=== PATIENT | male | born 1975 | race Caucasian/White ===

== ENCOUNTER 2022-02-01 13:57 | Emergency (ER) | payer BC, SELFPAY ==
[2022-02-01 14:07] VITALS: BP 111/65; PULSE 107; RESP 18; TEMP 36.9; O2SAT 98
--- NOTE | 2022-02-01 14:25 | ED.GENADUL_ITS ---
Discharge Plan Disposition Patient Disposition: HOME Condition: Stable Discharge Details Chief Complaint: AnimalBite Clinical Impression: Dog bite of left lower leg Primary Care Provider: Marleen,Local ED Provider: Willis Sutherland Home Meds and New Rx's Prescriptions: No Action No Known Home Meds Discharge Instructions Instructions: Animal Bite (ED) Additional Instructions: Your wound was cleaned and dressed. You have not provided information regarding the dog bite and therefore we must assume the dog has rabies, we have initiated the rabies vaccine and immunoglobulin as well as updated your tetanus status. I have filled out the form so that you may have the next 3 rabies vaccine as well. Please keep the area clean and dry, change dressing daily. [id number] Tylenol and/or Motrin as directed for discomfort. Rest, elevate, cool and/or warm compresses every 2 hours for 20 minutes. Please watch for new or worsening symptoms and return to the ER for any concerns. Lastly, please contact your primary care provider on Thursday to discuss your ER visit need for outpatient reevaluation Medical Decision Making This is a 47-year-old gentleman, otherwise healthy, presenting for a left lower leg dog bite approximately 2 hours ago. Patient declined to provide information regarding the dog bite and would like to move forward with rabies vaccine and immunoglobulin. Patient declines an x-ray. No clear indication to initiate antibiotic therapy. Dog bite was reported. Tetanus updated. Wound was thoroughly cleaned and dressed. Initiated rabies immunoglobulin and vaccine, form filled for the next 3 rabies injections Standard discharge and return precautions were provided. Patient understands, is agreeable to this plan, and has no additional questions or concerns upon discharge. This documentation was generated using [employer] system, please disregard any oddities of phrase or misspellings. Medical Records Medical records reviewed: Yes I reviewed the patient's medical records. HPI General Mode of arrival: ambulatory . Date/Time Provider Initiated Documentation: 02/01/22 14:10 . Limitations to Documentation: no limitations . Information obtained by: patient . History of Present Illness 47 year old M presents to the emergency department with the chief complaint of L lower leg dog bite, described as mild, with intensity rated at 3. Quality is described as aching, and is localized to the left and lower extremity. Patient reports no radiation. Patient started experiencing this hour(s) and it has been constant. No relieving factors improve symptom(s), No exacerbating factors reported . Patient notes no other symptoms.. Patient did receive the following treatments prior to arrival, none Related Data Home Medications Medication Instructions Recorded Confirmed Unknown [No Known Home Meds] 02/07/17 03/19/21 Allergies Allergy/AdvReac Type Severity Reaction Status Date / Time No Known Allergies Allergy Unverified 02/01/22 14:09 General Stated Complaint: AnimalBite MICHELLE: 3 Review of Systems Constitutional Constitutional: Denies fever(s) and Denies weakness Musculoskeletal Musculoskeletal: Denies arthralgias, Denies numbness, Denies stiffness and Denies tingling Integumentary/Breasts Skin/Breast: Denies erythema Neurologic Neurologic: Denies numbness, Denies tingling and Denies weakness PFSH All Active Problems (Updated 02/01/22 @ 14:59 by PANKAJ Hamilton) Dog bite of left lower leg (Acute) Social History Smoking risk assessment performed?: No Do you feel safe in your relationship?: Yes Exam Const General: cooperative, healthy appearing, comfortable and no acute distress Orientation: alert and awake HENNY Head: normal to inspection, normocephalic and atraumatic Eyes Conjunctivae: conjunctivae normal Neck Neck: normal visual inspection, trachea midline and supple Resp Effort & Inspection: normal respiratory effort and able to speak in complete sentences Cardio Rate: regular rate Rhythm: regular rhythm Skin General skin exam: no rashes or lesions noted Neuro General: patient alert, patient awake, moves all extremities and no focal motor deficits Cognition: normal cognition Speech: speech normal Gait: normal gait Motor: muscle tone normal throughout Sensory Exam: no sensory deficits noted Extrem General: full ROM and capillary refill normal Upper/lower leg/hip images: 1. Multiple abrasions with a single central puncture wound. Diffuse mild disco mfort. No active bleeding or obvious foreign body. Neuro, vascular, tendon intact. Psych Appearance: grossly normal Mental Status: mental status grossly normal Course Vital Signs Vital signs: Vital Signs Temperature 36.9 C 02/01/22 14:07 Pulse 107 H 02/01/22 14:07 Respiratory Rate 18 02/01/22 14:07 Blood Pressure 111/65 02/01/22 14:07 Pulse Oximetry 98 02/01/22 14:07 Temperature 36.9 C 02/01/22 14:07 Temperature Source Temporal Artery Scan 02/01/22 14:07 Pulse 107 H 02/01/22 14:07 Respiratory Rate 18 02/01/22 14:07 Blood Pressure 111/65 02/01/22 14:07 Blood Pressure Position Sitting 02/01/22 14:07 Pulse Oximetry 98 02/01/22 14:07 Oxygen Delivery Method Room Air 02/01/22 14:07 Oxygen Flow Rate 0 02/01/22 14:07
[2022-02-01] MEDS: Rabies Immune Globulin 1,500 UNIT/5 ML VIAL 1333.56 UNITS IM (15:21)
[2022-02-01 15:35] VITALS: BP 120/76; PULSE 62; RESP 18; TEMP 36.6; O2SAT 98
--- NOTE | 2022-02-01 15:41 | NUR.NOTE ---
Nursing Note: Spoke with Aaron Aden, health officer for [facility]; he is aware and the form at his request was faxed to [facility] for follow up.
== END 2022-02-01 15:38 | disposition home or self-care (01) ==
PROVIDERS: Emergency Provider Physician Assistant
DX: S81.852A Open bite, left lower leg, initial encounter (principal); W54.0XXA Bitten by dog, initial encounter
CPT/HCPCS: 90471; 90472; 99282; 90675

== ENCOUNTER 2022-02-15 01:17 | Outpatient (RCR) | payer BC, SELFPAY | END 2022-03-05 23:59 | disposition home or self-care (01) | LOC: INF 01:17 | PROVIDERS: Visit Provider Physician Assistant | DX: Z20.3 Contact with and (suspected) exposure to rabies (principal) | CPT/HCPCS: 96365; 96372; 90675 ==

== ENCOUNTER 2023-04-24 02:02 | Outpatient (CLI) | payer BC, SELFPAY ==
[2023-04-24 09:00] LABS: HCT 43.8 % (40.0-50.0); HGB 14.6 g/dL (13.5-17.5); MCH 29.6 pg (27.0-33.0); MCHC 33.3 % (32.0-36.0); MCV 89 fL (80-95); MPV 9.4 fL (8.0-11.0); Platelet Count 268 10^3/uL (130-400); RBC 4.93 10^6/uL (4.36-5.78); RDW 11.5 % (11.8-14.1); RDW-SD 36.9 fL; WBC 4.62 10^3/uL (4.4-10.8)
[2023-04-24 10:03] LABS: ALT 37 U/L (16-63); AST 24 U/L (15-37); Albumin 3.9 g/dL (3.4-5.0); Alkaline Phosphatase 109 U/L (46-116); BUN 11 mg/dL (7-18); Bilirubin, Total 0.4 mg/dL (0.2-1.0); CREATININE 0.7 mg/dL (0.70-1.30); Calcium 9.5 mg/dL (8.5-10.1); Calculated LDL 133 mg/dL (<100); Chloride 103 mmol/L (98-107); Cholesterol 225 mg/dL (<200); Estimated GFR 115.08 (mL/min/1.73m2); Glucose 109 mg/dL (74-106); HDL Cholesterol 69 mg/dL (40-60); Potassium 4.2 mmol/L (3.5-5.1); Sodium 141 mmol/L (136-145); Total Protein 7.9 g/dL (6.4-8.2); Triglyceride 118 mg/dL (<150); Vitamin B12 260 pg/mL (193-986)
== END 2023-04-24 02:03 | disposition home or self-care (01) ==
PROVIDERS: PCP Nurse Practitioner Family; Visit Provider Nurse Practitioner Family
DX: R53.83 Other fatigue (principal); Z13.220 Encounter for screening for lipoid disorders; Z00.00 Encounter for general adult medical examination without abnormal findings
CPT/HCPCS: 36415; 80053; 80061; 85027; 82607

== ENCOUNTER 2024-02-19 10:06 | Outpatient (CLI) | payer BC, SELFPAY ==
[2024-02-19 13:05] LABS: D-Dimer 173 ng/mlFEU (<500)
[2024-02-19 13:38] LABS: ALT 38 U/L (16-63); AST 23 U/L (15-37); Alkaline Phosphatase 104 U/L (46-116); Anion Gap 7.5 mmol/L (3-11); BUN 11 mg/dL (7-18); Bilirubin, Total 0.53 mg/dL (0.2-1.0); CO2 30.5 mmol/L (21.0-32.0); CREATININE 0.8 mg/dL (0.70-1.30); Calcium 9.4 mg/dL (8.5-10.1); Calculated LDL 118 mg/dL (<100); Chloride 103 mmol/L (98-107); Cholesterol 214 mg/dL (<200); Estimated GFR 109.85 (mL/min/1.73m2); Glucose 125 mg/dL (74-106); HDL Cholesterol 61 mg/dL (40-60); Potassium 4.5 mmol/L (3.5-5.1); Sodium 141 mmol/L (136-145); Total Protein 7.3 g/dL (6.4-8.2); Triglyceride 175 mg/dL (<150)
[2024-02-21 12:50] LABS: HIV-1/2 Ag & Ab Screen Negative (Negative)
[2024-02-22 13:20] LABS: Hepatitis C Ab w Rflx HCV PCR Negative (Negative)
== END 2024-02-19 10:07 | disposition home or self-care (01) ==
LOC: LOS 10:06
PROVIDERS: PCP Nurse Practitioner Family; Visit Provider Nurse Practitioner Family
DX: Z11.4 Encounter for screening for human immunodeficiency virus [HIV] (principal); M79.89 Other specified soft tissue disorders; Z11.59 Encounter for screening for other viral diseases; Z13.220 Encounter for screening for lipoid disorders; R73.9 Hyperglycemia, unspecified
CPT/HCPCS: 36415; 80053; 80061; 86803; 87389; 85379

== ENCOUNTER 2025-02-27 10:50 | Outpatient (CLI) | payer BC, SELFPAY ==
[2025-02-27 12:38] LABS: Abs Immature Grans 0.01 10^3/uL (0.0-0.06); HCT 42.6 % (40.0-50.0); HGB 14.3 g/dL (13.5-17.5); Immature Grans % 0.2 %; MCH 29.9 pg (27.0-33.0); MCHC 33.6 % (32.0-36.0); MCV 89 fL (80-95); MPV 10.1 fL (8.0-11.0); Platelet Count 294 10^3/uL (130-400); RBC 4.78 10^6/uL (4.36-5.78); RDW 11.8 % (11.8-14.1); RDW-SD 38.4 fL; WBC 5.13 10^3/uL (4.4-10.8)
[2025-02-27 13:25] LABS: Anion Gap 8.3 mmol/L (3-11); BUN 19 mg/dL (7-18); CO2 29.7 mmol/L (21.0-32.0); Calcium 9.5 mg/dL (8.5-10.1); Chloride 101 mmol/L (98-107); Estimated GFR 109.17 (mL/min/1.73m2); Glucose 111 mg/dL (74-106); Potassium 4.0 mmol/L (3.5-5.1); Sodium 139 mmol/L (136-145); TSH (W/Ref FT4) 0.84 uIU/mL (0.36-3.74)
== END 2025-02-27 10:51 | disposition home or self-care (01) ==
LOC: LOS 10:50
PROVIDERS: PCP Nurse Practitioner Family; Visit Provider Nurse Practitioner Family
DX: R61 Generalized hyperhidrosis (principal)
CPT/HCPCS: 36415; 80048; 84443; 85025